=== PATIENT | male | born 1995 | race African-American/Black ===

== ENCOUNTER 2018-02-20 07:29 | Emergency (ER) | payer OTHER, SELFPAY ==
[2018-02-20] MEDS ORDERED: Adacel (T-DAP) 0.5 ML VIAL ONE (07:33)
--- NOTE | 2018-02-20 08:59 | RAD ---
RIGHT FOREARM TWO VIEWS: HISTORY: Trauma. Pain. COMPARISON: None. FINDINGS: No fracture. No cortical irregularity or periosteal reaction. IMPRESSION: No fracture. POS: [facility]
--- NOTE | 2018-02-20 09:18 | RAD ---
RIGHT WRIST 3 VIEWS: History Trauma. Pain. COMPARISON: None. FINDINGS: Intercarpal and radiocarpal joint space is preserved. No fracture or dislocation. There is a foreig n body projecting over the thenar soft tissues. Correlate clinically. IMPRESSION: 1. Radiopaque foreign body in thenar soft tissues. 2. No fracture. POS: [facility]
== END 2018-02-20 08:16 | disposition home or self-care (01) ==
LOC: ERS 07:29
DX: S61.031A Puncture wound without foreign body of right thumb without damage to nail, initial encounter (principal); S60.211A Contusion of right wrist, initial encounter; S50.811A Abrasion of right forearm, initial encounter; F17.210 Nicotine dependence, cigarettes, uncomplicated; V89.2XXA Person injured in unspecified motor-vehicle accident, traffic, initial encounter; W22.11XA Striking against or struck by driver side automobile airbag, initial encounter
CPT/HCPCS: 90471; 90715; G0390